=== PATIENT | male | born 1970 | race Caucasian/White ===

== ENCOUNTER 2021-01-10 12:41 | Outpatient (CLI) | payer SELFPAY ==
[~2021-01-10 12:41] MED LIST: BAMLANIVIMAB (EUA) 700 MG, ETESEVIMAB (EUA) 1,400 MG in SODIUM CHLORIDE 0.9% 50 ML IVPB ONE; SODIUM CHLORIDE 0.9% 50 ML IVPB ONE; SODIUM CHLORIDE 0.9% 500 ML 500 ML in EMPTY BAG 1 BAG IV PRN
[2021-01-10 14:07] VITALS: TEMP 98
[2021-01-10 14:47] VITALS: BP 107/56; PULSE 68; RESP 16
== END 2021-01-10 15:10 | disposition home or self-care (01) ==
LOC: PROCWHC3 12:41
PROVIDERS: ATTEND Internal Medicine
DX: U07.1 COVID-19 (principal)
CPT/HCPCS: 96360; J3490; M0243